=== PATIENT | female | born 1955 | race Caucasian/White ===

== ENCOUNTER → 2016-09-10 | Outpatient (CLI) | payer BC ==
--- NOTE | 2016-09-10 14:21 | MAMMOGRAPHY REPORT ---
SCREENING ULTRASOUND OF BOTH BREASTS: 09/10/2016 CLINICAL HISTORY: Additional screening due to strong family history of breast cancer = sister; zandra ocampo with a history of ovarian cancer. Patient had genetic testing and she does not carry the BRCA1 or BRCA2 gene. COMPARISON: Comparison is made to exams dated: 11/24/2015 mammogram, 08/29/2015 ultrasound, 11/22/2014 m ammogram, 03/01/2014 ultrasound, and 11/17/2013 mammogram - [facility]. FINDINGS: Real-time high-resolution sonographic evaluation was performed throughout each breast inc luding the retroareolar aspect of the breasts and both axillae. No suspicious lymphadenopathy was i dentified within the right or left axilla. The background echotexture is heterogeneousdense. A sm all lobulated hypoechoic, nearly anechoic mass with clearly defined mcgee and posterior acoustic enh ancement is identified in the 6:00 left breast, 2 cm from the nipple, measuring 3.0 x 2.8 x 2.4 mm. No other discrete solid or cystic mass is seen throughout the remainder of the left breast or withi n the right breast. IMPRESSION: ACR-BI-RADS CATEGORY 3: PROBABLY BENIGN - FOLLOW-UP RECOMMENDED 1. There is a probable complicated cyst in the 6:00 left breast, 2 cm from the nipple, measuring 3 mm. Given that this cyst is not completely anechoic, a short interval follow-up targeted ultrasound is recommended to ensure stability in 6 months. Annual bilateral mammography is also due at that t blas. 2. Otherwise no sonographic evidence of malignancy in the breasts. These results and recommendations were discussed with the patient at the time of the exam. Nata Fernandes M.D. ay/:09/10/2016 12:30:34 Turbo Electric Operator: Katey VIZCAINO(Harshil)(Marisa), [facility] letter sent: Follow Up Recommended 3 BI-RADS Code: ACR-BI-RADS Category 3: Probably Benign
== END | disposition home or self-care (01) ==
LOC: C.MAMM 10:36
PROVIDERS: ATTEND Obstetrics & Gynecology
DX: Z12.31 Encounter for screening mammogram for malignant neoplasm of breast (principal); Z80.3 Family history of malignant neoplasm of breast; R92.8 Other abnormal and inconclusive findings on diagnostic imaging of breast

== ENCOUNTER → 2017-03-06 | Outpatient (CLI) | payer BC | END | disposition home or self-care (01) | LOC: C.PAPS 14:26 | PROVIDERS: ATTEND Obstetrics & Gynecology | DX: Z01.419 Encounter for gynecological examination (general) (routine) without abnormal findings (principal) ==

== ENCOUNTER → 2017-03-13 | Outpatient (CLI) | payer BC ==
--- NOTE | 2017-03-13 15:42 | MAMMOGRAPHY REPORT ---
BILATERAL DIGITAL DIAGNOSTIC MAMMOGRAM TOMOSYNTHESIS WITH CAD AND TARGETED LEFT ULTRASOUND: 03/13/2017 CLINICAL HISTORY: 61-year-old woman presents to follow-up a probably benign sonographic finding ident ified on whole breast ultrasound in the 6:00 left breast. Also time of annual bilateral screening ma mmograms. Family history of breast cancer. TECHNIQUE: Bilateral breast tomosynthesis in addition to standard 2D mammography was performed. Curre nt study was also evaluated with a Computer Aided Detection (CAD) system. COMPARISON: Comparison is made to exams dated: 09/10/2016 ultrasound, 11/24/2015 mammogram, 08/29/2015 ul trasound, 11/22/2014 mammogram, 03/01/2014 ultrasound, and 11/17/2013 mammogram - [facility]. BREAST COMPOSITION: There are scattered areas of fibroglandular density in both breasts. FINDINGS: The parenchymal pattern is similar to prior exams. No new suspicious mass, architectural d istortion or cluster of microcalcifications is seen. Targeted ultrasound was performed in the 6:00 left breast, 2 cm from the nipple, to reevaluate the ci rcumscribed hypoechoic solid versus cystic mass. It is again seen and visually appears similar. It currently measures 2.8 x 2.7 x 3.2 mm, which is unchanged comparing to the prior ultrasound at which time it measured 3.0 x 2.8 x 2.4 mm. This most likely represents a complicated cyst, but another tar geted ultrasound is recommended to ensure longer stability in 6 months. At the time of the next foll ow-up, bilateral complete breast ultrasound could also be performed for additional screening, given t he family history of breast cancer. IMPRESSION: ACR-BI-RADS CATEGORY 3: PROBABLY BENIGN, TARGETED ULTRASOUND ACR-BI-RADS CATEGORY 3: PRO BABLY BENIGN 1. Stable mammographic appearance of the breasts, without mammographic evidence of malignancy. Advi se follow-up in 12 months for next annual screening exam. 2. Stable sonographic appearance of a small, 3 mm hypoechoic mass in the 6:00 left breast, for which another six-month follow-up targeted ultrasound is recommended to ensure longer stability. At the t blas of follow-up, bilateral whole breast screening ultrasound could also be performed (30 minutes). These results and recommendations were discussed with the patient at the time of the exam. Approximately 10% of breast cancers are not detected with mammography. A negative mammographic report should not delay biopsy if a clinically suggestive mass is present. Nata Fernandes M.D. ay/:03/13/2017 14:40:08 Salon Manager: Rufus ARECHIGA)(Marisa), [facility] letter sent: Follow Up Recommended 3 BI-RADS Code: ACR-BI-RADS Category 3: Probably Benign Ultrasound BI-RADS: ACR-BI-RADS Category 3: Pr obably Benign
== END | disposition home or self-care (01) ==
LOC: C.MAMM 10:50
PROVIDERS: ATTEND Family Medicine
DX: N64.9 Disorder of breast, unspecified (principal); N63 Unspecified lump in breast

== ENCOUNTER → 2017-09-18 | Outpatient (CLI) | payer OTHER ==
--- NOTE | 2017-09-19 13:25 | MAMMOGRAPHY REPORT ---
ULTRASOUND OF BOTH BREASTS: 09/18/2017 CLINICAL HISTORY: Short interval follow-up of left breast mass seen on ultrasound. The patient also desires screening bilateral whole breast ultrasound. She denies any palpable lumps or other complain ts. COMPARISON: Comparison is made to exams dated: 03/13/2017 mammogram, 03/13/2017 ultrasound, 09/10/2016 ultrasound, 11/22/2014 mammogram, 03/01/2014 ultrasound, and 08/29/2015 ultrasound - [facility]. TECHNIQUE: Real-time ultrasound of both breasts was performed. FINDINGS: Real-time, high-resolution ultrasound was performed of bilateral breasts including all 4 q uadrants and subareolar regions. In the left breast at 6:00, 3 cm from the nipple, again noted is a round circumscribed hypoechoic mass with posterior acoustic enhancement, measuring 3 x 3 x 3 mm. The mass is stable compared to prior exams dating back to August 2015 (previously labeled 5:00, 2 cm fr om the nipple on the 2015 exam), and is considered benign given the morphology and long-term stabilit y. The remainder of both breasts demonstrate no suspicious masses or other suspicious sonographic ab normalities. IMPRESSION: ACR BI-RADS CATEGORY 2: BENIGN Small 3 mm circumscribed mass in the left 6:00 breast is stable dating back to the August 2015 exam and is considered benign given the morphology and long-term stability. There is no sonographic evide nce of malignancy in either breast. Return to annual mammogram screening schedule is recommended, due February 2018. If the patient desires to continue with screening bilateral whole breast ultrasound, this could be performed in one year (30 minute time slot). The patient was verbally notified of the results. Devi Perez M.D. /:09/18/2017 14:32:31 Mushroom Spawn Maker: Linda ARECHIGA)(Marisa), [facility] letter sent: Normal 1/2 BI-RADS Code: ACR BI-RADS Category 2: Benign
== END | disposition home or self-care (01) ==
LOC: C.MAMM 14:04
PROVIDERS: ATTEND Obstetrics & Gynecology
DX: N63.20 Unspecified lump in the left breast, unspecified quadrant (principal)

== ENCOUNTER → 2018-03-17 | Outpatient (CLI) | payer OTHER ==
--- NOTE | 2018-03-19 07:56 | MAMMOGRAPHY REPORT ---
BILATERAL DIGITAL SCREENING MAMMOGRAM TOMOSYNTHESIS WITH CAD: 03/17/2018 CLINICAL HISTORY: Routine screening. Patient has no complaints. TECHNIQUE: The study was acquired using full field digital technology and interpreted from soft copy. Breast tomosynthesis in addition to standard 2D mammography was performed. Current study was also ev aluated with a Computer Aided Detection (CAD) system. COMPARISON: Comparison is made to exams dated: 03/13/2017 mammogram, 11/24/2015 mammogram, 11/22/2014 ma mmogram, 03/13/2017 ultrasound, 09/10/2016 ultrasound, and 03/01/2014 ultrasound - [facility]. BREAST COMPOSITION: There are scattered areas of fibroglandular density in both breasts. FINDINGS: The parenchymal pattern is unchanged. No developing mass, architectural distortion or cluster of susp icious microcalcifications is seen in either breast. IMPRESSION: ACR BI-RADS CATEGORY 2: BENIGN There is no mammographic evidence of malignancy. A 1 year screening mammogram is recommended.( [id number]) The patient will receive written notification of the results. Some breast cancers are not detected with mammography. A negative mammographic report should not bulmaro y biopsy if a clinically suggestive mass is present. Nata Fernandes M.D. ay/:03/17/2018 21:50:13 Crisis Intervention Counselor: RT Sherwin(Harshil)(M), [facility] letter sent: Normal 1/2 BI-RADS Code: ACR BI-RADS Category 2: Benign
== END | disposition home or self-care (01) ==
LOC: C.MAMM 14:12
PROVIDERS: ATTEND Obstetrics & Gynecology
DX: Z12.31 Encounter for screening mammogram for malignant neoplasm of breast (principal)

== ENCOUNTER → 2018-03-23 | Outpatient (CLI) | payer OTHER | END | disposition home or self-care (01) | LOC: C.LAB1850 14:15 | PROVIDERS: ATTEND Obstetrics & Gynecology | DX: Z80.41 Family history of malignant neoplasm of ovary (principal) ==